=== PATIENT | male | born 1960 | race Caucasian/White ===

== ENCOUNTER 2018-03-01 11:28 | Inpatient (IN) | payer OTHER ==
[~2018-03-01] VITALS: Ht 175.3 cm; Wt 79.9 kg
--- NOTE | 2018-03-01 11:48 | PHYS DOC ---
Adult General Chief Complaint Chief Complaint: CHEST PAIN [facility] HPI Patient is a 57 year old male who presents with chest pain. Patient had onset of left side chest pain earlier this morning after waking. Pain has been constant since onset and is nonradiating. There are no aggravating or alleviating factors. He has not had shortness of breath. He has no recent illness, fever, cough. The patient does have a known history of hyperlipidemia and high blood pressure. He does endorse compliance with metoprolol, diltiazem, Cartia, and a statin. He states he did take his medications this morning although he is noted to be significantly hypertensive on arrival with systolic blood pressure over 200. Bili aspirin daily. He denies prior history of coronary artery disease but states he has been evaluated and admitted for chest pain previously. Review of Systems Review of Systems Constitutional: Denies fever Eyes: Denies change in visual acuity HENT: Denies nasal congestion Respiratory: Denies cough or shortness of breath Cardiovascular: No additional information not addressed in HPI GI: Denies abdominal pain : Denies dysuria Musculoskeletal: Denies back pain Integument: Denies rash Neurologic: Denies headache Endocrine: Denies polyuria All other systems were reviewed and found to be within normal limits, except as documented in this note. Current Medications Current Medications Current Medications Medications (Trade) Dose Ordered Sig/[facility] Start Time Stop Time Status Last Admin Dose Admin Aspirin (Children'S Aspirin) 324 mg 1X ONCE 03/01/18 12:00 03/01/18 12:21 DC 03/01/18 12:28 324 MG Nitroglycerin (Nitrostat) 0.4 mg PRN Q5MIN PRN 03/01/18 12:00 03/01/18 12:44 0.4 MG Allergies Allergies Allergies Coded Allergies Type Severity Reaction Last Updated Verified No Known Drug Allergies 03/01/18 No Physical Exam Physical Exam Constitutional: Well developed, well nourished, no acute distress, non-toxic appearance HENT: Normocephalic, atraumatic, bilateral external ears normal, oropharynx moist Eyes: PERRLA, EOMI, conjunctiva normal Neck: Normal range of motion, no tenderness Cardiovascular:Heart rate regular rhythm, no murmur Lungs & Thorax: Bilateral breath sounds clear to auscultation Abdomen: Bowel sounds normal, soft Skin: Warm, dry, no erythema, no rash Back: No tenderness Extremities: No edema Neurologic: Alert and oriented X 3 Psychologic: Affect normal Current Patient Data Vital Signs Vital Signs Date Time Temp Pulse Resp B/P (MAP) Pulse Ox O2 Delivery O2 Flow Rate FiO2 03/01/18 12:44 69 180/89 03/01/18 11:36 98.1 14 Room Air 98.1 Lab Values Laboratory Tests Test 03/01/18 11:50 White Blood Count 6.9 x10^3/uL (4.0-11.0) Red Blood Count 5.38 x10^6/uL (4.30-5.70) Hemoglobin 16.4 g/dL (13.0-17.5) Hematocrit 46.8 % (39.0-53.0) Mean Corpuscular Volume 87 fL (79-100) Mean Corpuscular Hemoglobin 31 pg (25-35) Mean Corpuscular Hemoglobin Concent 35 g/dL (31-37) Red Cell Distribution Width 14.6 % (11.5-14.5) H Platelet Count 237 x10^3/uL (140-400) Neutrophils (%) (Auto) 62 % (31-73) Lymphocytes (%) (Auto) 26 % (24-48) Monocytes (%) (Auto) 10 % (0-9) H Eosinophils (%) (Auto) 2 % (0-3) Basophils (%) (Auto) 1 % (0-3) Neutrophils # (Auto) 4.3 x10^3uL (1.8-7.7) Lymphocytes # (Auto) 1.8 x10^3/uL (1.0-4.8) Monocytes # (Auto) 0.7 x10^3/uL (0.0-1.1) Eosinophils # (Auto) 0.1 x10^3/uL (0.0-0.7) Basophils # (Auto) 0.1 x10^3/uL (0.0-0.2) Prothrombin Time 12.1 SEC (11.7-14.0) Prothrombin Time INR 0.9 (0.8-1.1) PTT 29 SEC (24-38) D-Dimer (Dejah) 0.33 ug/mlFEU (0.00-0.50) Sodium Level 136 mmol/L (136-145) Potassium Level 4.3 mmol/L (3.5-5.1) Chloride Level 102 mmol/L (98-107) Carbon Dioxide Level 25 mmol/L (21-32) Anion Gap 9 (6-14) Blood Urea Nitrogen 13 mg/dL (8-26) Creatinine 1.1 mg/dL (0.7-1.3) Estimated GFR (Cockcroft-Gault) 68.8 Glucose Level 147 mg/dL (70-99) H Calcium Level 8.8 mg/dL (8.5-10.1) Troponin I Quantitative < 0.017 ng/mL (0.000-0.055) IE-Oue-W-Type Natriuretic Peptide 757 pg/mL (0-124) H Laboratory Tests 03/01/18 11:50 Laboratory Tests 03/01/18 11:50 EKG EKG No STEMI. T wave inversion V4-V6 Interpretation Time: 11:40 Radiology/Procedures Radiology/Procedures no acute findings Course & Med Decision Making Course & Med Decision Making Pertinent Labs and Imaging studies reviewed. (See chart for details) 11:45: Patient is examined and evaluated for chest pain. His EKG reveals sinus rhythm with some T-wave inversion in leads V4 through V6. There is no ST elevation. Standard CP work-up. NTG for pain. ASA. 13:25: No acute findings on the workup today. Based on the patient's comorbidities, he has a heart score of 4. His EKG was nonacute. Plan today will be to admission for chest pain rule out and cardiology consultation. The patient is agreeable. He did have relief of chest pain in the ER following administration of nitroglycerin. His pain returned however when he ambulated to the restroom to void. I spoke to Dr. John who will primarily admit. Bridge orders and cardiology consult placed. Dragon Disclaimer Dragon Disclaimer This electronic medical record was generated, in whole or in part, using a voice recognition dictation system. LIN LOPEZ DO Mar 01, 2018 11:48
[2018-03-01] MEDS ORDERED: ASPIRIN CHEWABLE 81 MG TABLET. PO ONE (12:00)
--- NOTE | 2018-03-01 12:00 | EKG ---
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
[2018-03-01 12:14] LABS: BASO # 0.1 x10^3/uL (0.0-0.2); BASO % 1 % (0-3); EOS # 0.1 x10^3/uL (0.0-0.7); EOS % 2 % (0-3); HEMATOCRIT 46.8 % (39.0-53.0); HEMOGLOBIN 16.4 g/dL (13.0-17.5); LYMPH # 1.8 x10^3/uL (1.0-4.8); LYMPH % 26 % (24-48); MEAN CORPUSCULAR HEMOGLOBIN 31 pg (25-35); MEAN CORPUSCULAR HGB CONC 35 g/dL (31-37); MEAN CORPUSCULAR VOLUME 87 fL (79-100); MONO # 0.7 x10^3/uL (0.0-1.1); MONO % 10 % (0-9); NEUT # 4.3 x10^3uL (1.8-7.7); NEUT % 62 % (31-73); PLATELET COUNT 237 x10^3/uL (140-400); RED BLOOD COUNT 5.38 x10^6/uL (4.30-5.70); RED CELL DISTRIBUTION WIDTH 14.6 % (11.5-14.5); WHITE BLOOD COUNT 6.9 x10^3/uL (4.0-11.0)
[2018-03-01 12:23] LABS: PROTHROMBIN TIME PATIENT 12.1 SEC (11.7-14.0)
[2018-03-01 12:28] LABS: D-DIMER 0.33 ug/mlFEU (0.00-0.50)
[2018-03-01] MEDS: NITROGLYCERIN SUBLINGUAL 0.4 MG BOTTLE OF 25. SL PRN ×2 (12:28→12:44)
[2018-03-01 12:29] LABS: CALCIUM 8.8 mg/dL (8.5-10.1); CREATININE 1.1 mg/dL (0.7-1.3); GFR 68.8; POTASSIUM 4.3 mmol/L (3.5-5.1)
--- NOTE | 2018-03-01 13:15 | RAD ---
PORTABLE CHEST 1V Clinical indications: CHEST PAIN COMPARISON: 10/22/2009. Findings: No acute lung infiltrate or pleural effusion or pulmonary edema or lung mass or pneumothorax is seen. The heart size, pulmonary vasculature, mediastinum and both addison are unremarkable. Impression: No acute radiographic abnormality is seen. Electronically signed by: Manuel Pickering MD (03/01/2018 1:12 PM) [facility]
[2018-03-01] MEDS ORDERED: MORPHINE SULFATE 4 MG/ML VIAL. IV PRN (13:30)
[2018-03-01] MEDS ORDERED: NITROGLYCERIN SUBLINGUAL 0.4 MG BOTTLE OF 25. SL PRN (13:30)
[2018-03-01] MEDS ORDERED: ONDANSETRON PF 4 MG/2 ML VIAL. IV PRN ×2 (13:30→14:00)
[2018-03-01] MEDS ORDERED: DOCUSATE SODIUM 100 MG CAPSULE. PO PRN (14:00)
[2018-03-01] MEDS ORDERED: traMADol 50 MG TABLET PO PRN (14:00)
[2018-03-01] MEDS ORDERED: DEXTROSE 50% 25 GM / 50ML DISP.SYRIN. IV PRN (14:00)
[2018-03-01] MEDS ORDERED: MORPHINE SULFATE 2 MG/ML VIAL. IV PRN (14:00)
[2018-03-01] MEDS ORDERED: LABETALOL 20 MG/4 ML DISP.SYRIN. IVP PRN (14:00)
[2018-03-01] MEDS ORDERED: ACETAMINOPHEN 325 MG TABLET. PO PRN (14:00)
--- NOTE | 2018-03-01 14:01 | PDOC1 ---
History and Physical Date of Admission Date of Admission 03/01/18 Identification/Chief Complaint Chief Complaint chest pain Source Source: Chart review, Patient History of Present Illness History of Present Illness Patient is a 57 year old male who presents with chest pain for a few weekS. pT HAS HTN, dm2 on insulin, [place] intermittent left side chest pain for a few weeks. The pain feels pressure and sharp, usually happened when he walks, but he didnot has to stop walking and the pain goes away after a few minutes, no diaphoresis, sob or N/V with it. When the pain was severe, it could be 8/10, no tenderness, no acid reflux. Today, he started to feel chest pain about 8.30am when resting, constant, also found high BP at 200, and came to ER. compliant with his home meds. He does endorse compliance with metoprolol, diltiazem, Cartia, and a statin. He states he did take his medications this morning although he is noted to be significantly hypertensive on arrival with systolic blood pressure over 200. Bili aspirin daily. He denies prior history of coronary artery disease but states he has been evaluated and admitted for chest pain previously years ago. first trop neg. EKG SHOWED T wave inversion at v3-6. Past Medical History Cardiovascular: HTN Endocrine: Diabetes Past Surgical History Past Surgical History: No pertinent history Family History Family History: Heart Disease, Hypertension Social History Smoke: No ALCOHOL: heavy (6 packs beers every other day) Drugs: None Current Medications Current Medications Current Medications Medications (Trade) Dose Ordered Sig/Laura Start Time Stop Time Status Last Admin Dose Admin Aspirin (Children'S Aspirin) 324 mg 1X ONCE 03/01/18 12:00 03/01/18 12:21 DC 03/01/18 12:28 324 MG Morphine Sulfate (Morphine Sulfate) 4 mg PRN Q2HR PRN 03/01/18 13:30 03/02/18 13:29 Nitroglycerin (Nitrostat) 0.4 mg PRN Q5MIN PRN 03/01/18 13:30 03/02/18 13:29 Ondansetron HCl (Zofran) 4 mg PRN Q8HRS PRN 03/01/18 13:30 03/02/18 13:29 Allergies Allergies Allergies Coded Allergies Type Severity Reaction Last Updated Verified No Known Drug Allergies 03/01/18 No ROS Review of System CONSTITUTIONAL: No fever or chills EYES: No recent changes SKIN: No rash or itching CARDIOVASCULAR: No chest pain, syncope, palpitations, or edema RESPIRATORY: No SOB or cough GASTROINTESTINAL: No nausea, vomiting or abdominal pain NEUROLOGICAL: No headaches or weakness ENDOCRINE: No cold or heat intolerance GENITOURINARY: No urgency or frequency of urination MUSCULOSKELETAL: No back pain or joint pain LYMPHATICS: No enlarged lymph nodes PSYCHIATRIC: No anxiety or depression Physical Exam Physical Exam GEN.: No apparent distress. Alert and oriented. HEENT: Head is normocephalic, atraumatic NECK: Supple. LUNGS: Clear to auscultation. HEART: RRR, S1, S2 present. Peripheral pulses intact ABDOMEN: Soft, nontender. Positive bowel sounds. EXTREMITIES: Without any cyanosis. NEUROLOGIC: Normal speech, normal tone PSYCHIATRIC: Normal affect, normal mood. SKIN: No ulcerations Vitals Vitals Vital Signs Date Time Temp Pulse Resp B/P (MAP) Pulse Ox O2 Delivery O2 Flow Rate FiO2 03/01/18 12:44 69 180/89 03/01/18 11:36 98.1 14 Room Air 98.1 Labs Labs Laboratory Tests Test 03/01/18 11:50 White Blood Count 6.9 x10^3/uL (4.0-11.0) Red Blood Count 5.38 x10^6/uL (4.30-5.70) Hemoglobin 16.4 g/dL (13.0-17.5) Hematocrit 46.8 % (39.0-53.0) Mean Corpuscular Volume 87 fL (79-100) Mean Corpuscular Hemoglobin 31 pg (25-35) Mean Corpuscular Hemoglobin Concent 35 g/dL (31-37) Red Cell Distribution Width 14.6 % (11.5-14.5) Platelet Count 237 x10^3/uL (140-400) Neutrophils (%) (Auto) 62 % (31-73) Lymphocytes (%) (Auto) 26 % (24-48) Monocytes (%) (Auto) 10 % (0-9) Eosinophils (%) (Auto) 2 % (0-3) Basophils (%) (Auto) 1 % (0-3) Neutrophils # (Auto) 4.3 x10^3uL (1.8-7.7) Lymphocytes # (Auto) 1.8 x10^3/uL (1.0-4.8) Monocytes # (Auto) 0.7 x10^3/uL (0.0-1.1) Eosinophils # (Auto) 0.1 x10^3/uL (0.0-0.7) Basophils # (Auto) 0.1 x10^3/uL (0.0-0.2) Prothrombin Time 12.1 SEC (11.7-14.0) Prothromb Time International Ratio 0.9 (0.8-1.1) Activated Partial Thromboplast Time 29 SEC (24-38) D-Dimer (Dejah) 0.33 ug/mlFEU (0.00-0.50) Sodium Level 136 mmol/L (136-145) Potassium Level 4.3 mmol/L (3.5-5.1) Chloride Level 102 mmol/L (98-107) Carbon Dioxide Level 25 mmol/L (21-32) Anion Gap 9 (6-14) Blood Urea Nitrogen 13 mg/dL (8-26) Creatinine 1.1 mg/dL (0.7-1.3) Estimated GFR (Cockcroft-Gault) 68.8 Glucose Level 147 mg/dL (70-99) Calcium Level 8.8 mg/dL (8.5-10.1) Troponin I Quantitative < 0.017 ng/mL (0.000-0.055) TQ-Ypu-W-Type Natriuretic Peptide 757 pg/mL (0-124) Laboratory Tests Test 03/01/18 11:50 White Blood Count 6.9 x10^3/uL (4.0-11.0) Red Blood Count 5.38 x10^6/uL (4.30-5.70) Hemoglobin 16.4 g/dL (13.0-17.5) Hematocrit 46.8 % (39.0-53.0) Mean Corpuscular Volume 87 fL (79-100) Mean Corpuscular Hemoglobin 31 pg (25-35) Mean Corpuscular Hemoglobin Concent 35 g/dL (31-37) Red Cell Distribution Width 14.6 % (11.5-14.5) Platelet Count 237 x10^3/uL (140-400) Neutrophils (%) (Auto) 62 % (31-73) Lymphocytes (%) (Auto) 26 % (24-48) Monocytes (%) (Auto) 10 % (0-9) Eosinophils (%) (Auto) 2 % (0-3) Basophils (%) (Auto) 1 % (0-3) Neutrophils # (Auto) 4.3 x10^3uL (1.8-7.7) Lymphocytes # (Auto) 1.8 x10^3/uL (1.0-4.8) Monocytes # (Auto) 0.7 x10^3/uL (0.0-1.1) Eosinophils # (Auto) 0.1 x10^3/uL (0.0-0.7) Basophils # (Auto) 0.1 x10^3/uL (0.0-0.2) Prothrombin Time 12.1 SEC (11.7-14.0) Prothromb Time International Ratio 0.9 (0.8-1.1) Activated Partial Thromboplast Time 29 SEC (24-38) D-Dimer (Dejah) 0.33 ug/mlFEU (0.00-0.50) Sodium Level 136 mmol/L (136-145) Potassium Level 4.3 mmol/L (3.5-5.1) Chloride Level 102 mmol/L (98-107) Carbon Dioxide Level 25 mmol/L (21-32) Anion Gap 9 (6-14) Blood Urea Nitrogen 13 mg/dL (8-26) Creatinine 1.1 mg/dL (0.7-1.3) Estimated GFR (Cockcroft-Gault) 68.8 Glucose Level 147 mg/dL (70-99) Calcium Level 8.8 mg/dL (8.5-10.1) Troponin I Quantitative < 0.017 ng/mL (0.000-0.055) FO-Zsf-R-Type Natriuretic Peptide 757 pg/mL (0-124) VTE Prophylaxis Ordered VTE Prophylaxis Devices: Yes VTE Pharmacological Prophylaxi: Yes Assessment/Plan Assessment/Plan unstable angina HTN URGENCY dm2 on insulin HLD alcoholism with 6pcks of beer every other day plan: card consult check TSH, lipid panel, echo, hba1c cycle CE lovenox 80mg sq bid for now, may need cath tmr? need verify home meds add asa FA, VITB1 talked to at bedside. DESMOND PEREZ MD Mar 01, 2018 14:01
[2018-03-01] MEDS ORDERED: ANTI-COAG MONITOR BY PHARMACY. MC PRN (14:15)
[2018-03-01] MEDS: THIAMINE 100 MG TABLET. PO SCH (15:47)
[2018-03-01] MEDS: FOLIC ACID 1 MG TABLET. PO SCH (15:47)
[2018-03-01 15:49] VITALS: BP 155/85
[2018-03-01] MEDS: INSULIN LISPRO 300 UNITS/3 ML INSULN.PEN. SQ SCH (17:08)
[2018-03-01 19:00] VITALS: BP 140/72
[2018-03-01 19:51] LABS: BARBITURATES NEG (NEG); BENZODIAZEPINES NEG (NEG); CANNABINOIDS NEG (NEG); COCAINE NEG (NEG); METHADONE NEG (NEG); OPIATES NEG (NEG); PHENCYCLIDINE NEG (NEG)
[2018-03-01 19:52] LABS: AMPHETAMINE/METHAMPHETAMINE NEG (NEG)
[2018-03-01] MEDS ORDERED: INSULIN GLARGINE 300 UNITS/3 ML INSULN.PEN. SQ ONE (21:00)
[2018-03-01] MEDS ORDERED: INSULIN LISPRO 300 UNITS/3 ML INSULN.PEN. SQ ONE (21:00)
[2018-03-01 23:00] VITALS: BP 163/73
[2018-03-01 23:06] LABS: HEMOGLOBIN A1C 8.4 % (4.8-5.6)
[2018-03-02 03:00] VITALS: BP 135/70
[2018-03-02 05:46] LABS: BASO % 1 % (0-3); EOS # 0.1 x10^3/uL (0.0-0.7); EOS % 2 % (0-3); HEMATOCRIT 45.6 % (39.0-53.0); HEMOGLOBIN 15.6 g/dL (13.0-17.5); LYMPH # 1.7 x10^3/uL (1.0-4.8); LYMPH % 31 % (24-48); MEAN CORPUSCULAR HEMOGLOBIN 30 pg (25-35); MEAN CORPUSCULAR HGB CONC 34 g/dL (31-37); MEAN CORPUSCULAR VOLUME 87 fL (79-100); MONO # 0.5 x10^3/uL (0.0-1.1); MONO % 10 % (0-9); NEUT # 3.2 x10^3uL (1.8-7.7); NEUT % 57 % (31-73); PLATELET COUNT 221 x10^3/uL (140-400); RED BLOOD COUNT 5.22 x10^6/uL (4.30-5.70); RED CELL DISTRIBUTION WIDTH 14.6 % (11.5-14.5); WHITE BLOOD COUNT 5.6 x10^3/uL (4.0-11.0)
[2018-03-02 06:22] LABS: CALCIUM 8.6 mg/dL (8.5-10.1); CREATININE 1.1 mg/dL (0.7-1.3); GFR 68.8; POTASSIUM 3.7 mmol/L (3.5-5.1)
[2018-03-02 06:26] LABS: CHOLESTEROL/HDL RATIO 3.8
[2018-03-02 06:58] VITALS: BP 145/78
[2018-03-02] MEDS: INSULIN LISPRO 300 UNITS/3 ML INSULN.PEN. SQ SCH ×2 (08:00→13:07)
[2018-03-02] MEDS ORDERED: ASPIRIN 325 MG TABLET PO SCH (08:00)
[2018-03-02] MEDS: THIAMINE 100 MG TABLET. PO SCH (09:00)
[2018-03-02] MEDS: FOLIC ACID 1 MG TABLET. PO SCH (09:00)
[2018-03-02] MEDS ORDERED: VALS1TAB22 PO (09:36)
[2018-03-02] MEDS ORDERED: DILT240C2 PO (09:36)
[2018-03-02] MEDS ORDERED: METO-269 PO (09:36)
[2018-03-02] MEDS ORDERED: PRAV40TA2 PO (09:36)
[2018-03-02] MEDS ORDERED: GABA-586 PO (09:36)
--- NOTE | 2018-03-02 09:44 | PDOC2 ---
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 Started again yesterday at 6 or 7 or 8 while he watching TV. BP was 231/131 POA with troponin levels not consistent with AMI. EKG without acute changes but with T wave inversions in V4-V6. Reason for Visit: CP PAST MEDICAL HISTORY Cardiovascular: HTN, Hyperlipidemia, Other (murmur) Pulmonary: No pertinent hx CENTRAL NERVOUS SYSTEM: Other (none) GI: No pertinent hx Heme/Onc: No pertinent hx Hepatobiliary: No pertinent hx Psych: No pertinent hx Musculoskeletal: No pain Rheumatologic: No pertinent hx Infectious disease: No pertinent hx ENT: No pertinent hx Renal/: No pertinent hx Endocrine: Diabetes (type II, uncontrolled) Dermatology: No pertinent hx PAST SURGICAL HISTORY Past Surgical History: No pertinent history FAMILY HISTORY Family History: Heart Disease (father and brother diagnosed in their 70s) SOCIAL HISTORY Smoke: Quit ALCOHOL: heavy (at least one beer per day; 6 pack each day on the weekends) Drugs: None CURRENT MEDICATIONS CURRENT MEDICATIONS Current Medications Medications (Trade) Dose Ordered Sig/Laura Route PRN Reason Start Time Stop Time Status Last Admin Dose Admin Aspirin (Children'S Aspirin) 324 mg 1X ONCE PO 03/01/18 12:00 03/01/18 12:21 DC 03/01/18 12:28 Nitroglycerin (Nitrostat) 0.4 mg PRN Q5MIN PRN SL CHEST PAIN 03/01/18 12:00 03/01/18 12:44 Insulin Human Lispro (HumaLOG) 0-9 UNITS TIDWMEALS SQ 03/01/18 17:00 03/01/18 17:08 Enoxaparin Sodium (Lovenox 80mg Syringe) 80 mg Q12HR SQ 03/01/18 14:30 03/01/18 20:36 Folic Acid (Folic Acid) 1 mg DAILY PO 03/01/18 14:30 03/01/18 15:47 Thiamine Mononitrate (Vitamin B-1) 100 mg DAILY PO 03/01/18 14:30 03/01/18 15:47 Insulin Glargine (Lantus) 20 units 1X ONCE SQ 03/01/18 21:00 03/01/18 21:01 DC 03/01/18 21:09 Insulin Human Lispro (HumaLOG) 6 units 1X ONCE SQ 03/01/18 21:00 03/01/18 21:01 DC 03/01/18 21:10 ALLERGIES ALLERGIES: Coded Allergies: No Known Drug Allergies (Unverified , 03/01/18) ROS General: No: Chills, Night Sweats, Fatigue, Malaise, Appetite, Other PSYCHOLOGICAL ROS: No: Anxiety, Behavioral Disorder, Concentration difficultie , Decreased libido, Depression, Disorientation, Hallucinations, Hostility, Irritablity, Memory difficulties, Mood Swings, Obsessive thoughts, Physical abuse, Sexual abuse, Sleep disturbances, Suicidal ideation, Other Eyes: No Blurry vision, No Decreased vision, No Double vision, No Dry eyes, No Excessive tearing, No Eye Pain, No Itchy Eyes, No Loss of vision, No Photophobia , No Scotomata, No Uses contacts, No Uses glasses, No Other HEENT: No: Heacaches, Visual Changes, Hearing change, Nasal congestion, Nasal discharge, Oral lesions, Sinus pain, Sore Throat, Epistaxis, Sneezing, Snoring, Tinnitus, Vertigo, Vocal changes, Other ALLERGY AND IMMUNOLOGY: No: Hives, Insect Bite Sensitivity, Itchy/Watery Eyes, Nasal Congestion, Post Nasal Drip, Seasonal Allergies, Other Hematological and Lymphatic: No: Bleeding Problems, Blood Clots, Blood Transfusions, Brusing, Night Sweats, Pallor, Swollen Lymph Nodes, Other ENDOCRINE: No: Breast Changes, Galactorrhea, Hair Pattern Changes, Hot Flashes , Malaise/lethargy, Mood Swings, Palpitations, Polydipsia/polyuria, Skin Changes , Temperature Intolerance, Unexpected Weight Changes, Other Respiratory: No: Cough, Hemoptysis, Orthopnea, Pleuritic Pain, Shortness of breath, SOB with excertion, Sputum Changes, Stridor, Tachypnea, Wheezing, Other Cardiovascular: yes Chest Pain; No Palpitations, No Orthopnea, No Paroxysmal Noc. Dyspnea, No Edema, No Lt Headedness, No Other Gastrointestinal: No Nausea, No Vomiting, No Abdominal Pain, No Diarrhea, No Constipation, No Melena, No Hematochezia, No Other Genitourinary: YES ; No Dysuria, No Frequency, No Incontinence, No Hematuria, No Retention, No Discharge, No Urgency, No Pain, No Flank Pain, No Other Musculoskeletal: No Gait Disturbance, No Joint Pain, No Joint Stiffness, No Joint Swelling, No Muscle Pain, No Muscular Weakness, No Pain In:, No Swelling In:, No Other Neurological: No Behavorial Changes, No Bowel/Bladder ControlChng, No Confusion , No Dizziness, No Gait Disturbance, No Headaches, No Impaired Coord/balance, No Memory Loss, No Numbness/Tingling, No Seizures, No Speech Problems, No Tremors, No Visual Changes, No Weakness, No Other Skin: No Dry Skin, No Eczema, No Hair Changes, No Lumps, No Mole Changes, No Mottling, No Nail Changes, No Pruritus, No Rash, No Skin Lesion Changes, No Other, No Acne PHYSICAL EXAM General: Alert, Oriented X3, Cooperative, No acute distress HEENT: Atraumatic Lungs: Clear to auscultation, Normal air movement Heart: Normal S1, Normal S2, Other (3-4/6 TERESE LSB) Abdomen: Normal bowel sounds, Soft Extremities: No edema, Normal pulses Skin: No rashes Neuro: Normal speech Psych/Mental Status: Mental status NL MUSCULOSKELETAL: No deformity, Osteoarthritic changes both hands VITALS VITALS Vital Signs Date Time Temp Pulse Resp B/P (MAP) Pulse Ox O2 Delivery O2 Flow Rate FiO2 03/02/18 06:58 98.1 61 16 145/78 (100) 99 Room Air 98.1 LABS Lab: Laboratory Tests Test 03/01/18 11:43 03/01/18 11:50 03/01/18 16:01 03/01/18 16:24 Hemoglobin A1c 8.4 % (4.8-5.6) Thyroid Stimulating Hormone (TSH) 1.322 uIU/mL (0.358-3.74) White Blood Count 6.9 x10^3/uL (4.0-11.0) Red Blood Count 5.38 x10^6/uL (4.30-5.70) Hemoglobin 16.4 g/dL (13.0-17.5) Hematocrit 46.8 % (39.0-53.0) Mean Corpuscular Volume 87 fL (79-100) Mean Corpuscular Hemoglobin 31 pg (25-35) Mean Corpuscular Hemoglobin Concent 35 g/dL (31-37) Red Cell Distribution Width 14.6 % (11.5-14.5) Platelet Count 237 x10^3/uL (140-400) Neutrophils (%) (Auto) 62 % (31-73) Lymphocytes (%) (Auto) 26 % (24-48) Monocytes (%) (Auto) 10 % (0-9) Eosinophils (%) (Auto) 2 % (0-3) Basophils (%) (Auto) 1 % (0-3) Neutrophils # (Auto) 4.3 x10^3uL (1.8-7.7) Lymphocytes # (Auto) 1.8 x10^3/uL (1.0-4.8) Monocytes # (Auto) 0.7 x10^3/uL (0.0-1.1) Eosinophils # (Auto) 0.1 x10^3/uL (0.0-0.7) Basophils # (Auto) 0.1 x10^3/uL (0.0-0.2) Prothrombin Time 12.1 SEC (11.7-14.0) Prothromb Time International Ratio 0.9 (0.8-1.1) Activated Partial Thromboplast Time 29 SEC (24-38) D-Dimer (Dejah) 0.33 ug/mlFEU (0.00-0.50) Sodium Level 136 mmol/L (136-145) Potassium Level 4.3 mmol/L (3.5-5.1) Chloride Level 102 mmol/L (98-107) Carbon Dioxide Level 25 mmol/L (21-32) Anion Gap 9 (6-14) Blood Urea Nitrogen 13 mg/dL (8-26) Creatinine 1.1 mg/dL (0.7-1.3) Estimated GFR (Cockcroft-Gault) 68.8 Glucose Level 147 mg/dL (70-99) Calcium Level 8.8 mg/dL (8.5-10.1) Troponin I Quantitative < 0.017 ng/mL (0.000-0.055) < 0.017 ng/mL (0.000-0.055) YE-Rkt-M-Type Natriuretic Peptide 757 pg/mL (0-124) Glucose (Fingerstick) 176 mg/dL (70-99) Test 03/01/18 17:15 03/01/18 19:20 03/01/18 20:21 03/01/18 22:46 Urine Opiates Screen Neg (NEG) Urine Methadone Screen Neg (NEG) Urine Barbiturates Neg (NEG) Urine Phencyclidine Screen Neg (NEG) Urine Amphetamine/Methamphetamine Neg (NEG) Urine Benzodiazepines Screen Neg (NEG) Urine Cocaine Screen Neg (NEG) Urine Cannabinoids Screen Neg (NEG) Urine Ethyl Alcohol Neg (NEG) Troponin I Quantitative < 0.017 ng/mL (0.000-0.055) Glucose (Fingerstick) 324 mg/dL (70-99) 275 mg/dL (70-99) Test 03/02/18 04:10 White Blood Count 5.6 x10^3/uL (4.0-11.0) Red Blood Count 5.22 x10^6/uL (4.30-5.70) Hemoglobin 15.6 g/dL (13.0-17.5) Hematocrit 45.6 % (39.0-53.0) Mean Corpuscular Volume 87 fL (79-100) Mean Corpuscular Hemoglobin 30 pg (25-35) Mean Corpuscular Hemoglobin Concent 34 g/dL (31-37) Red Cell Distribution Width 14.6 % (11.5-14.5) Platelet Count 221 x10^3/uL (140-400) Neutrophils (%) (Auto) 57 % (31-73) Lymphocytes (%) (Auto) 31 % (24-48) Monocytes (%) (Auto) 10 % (0-9) Eosinophils (%) (Auto) 2 % (0-3) Basophils (%) (Auto) 1 % (0-3) Neutrophils # (Auto) 3.2 x10^3uL (1.8-7.7) Lymphocytes # (Auto) 1.7 x10^3/uL (1.0-4.8) Monocytes # (Auto) 0.5 x10^3/uL (0.0-1.1) Eosinophils # (Auto) 0.1 x10^3/uL (0.0-0.7) Basophils # (Auto) 0.0 x10^3/uL (0.0-0.2) Sodium Level 137 mmol/L (136-145) Potassium Level 3.7 mmol/L (3.5-5.1) Chloride Level 103 mmol/L (98-107) Carbon Dioxide Level 25 mmol/L (21-32) Anion Gap 9 (6-14) Blood Urea Nitrogen 16 mg/dL (8-26) Creatinine 1.1 mg/dL (0.7-1.3) Estimated GFR (Cockcroft-Gault) 68.8 Glucose Level 167 mg/dL (70-99) Calcium Level 8.6 mg/dL (8.5-10.1) Triglycerides Level 205 mg/dL (0-150) Cholesterol Level 192 mg/dL (0-200) LDL Cholesterol, Calculated 101 mg/dL (0-100) VLDL Cholesterol, Calculated 41 mg/dL (0-40) Non-HDL Cholesterol Calculated 142 mg/dL (0-129) HDL Cholesterol 50 mg/dL (40-60) Cholesterol/HDL Ratio 3.8 IMAGES IMAGES CXR without acute process EKG EKG no acute changes; T wave inversions V4-V6 ASSESSMENT/PLAN ASSESSMENT/PLAN 1. chest pain --EKG and troponin levels not consistent with AMI --somewhat vague about symptoms; ? related to significant ETOH use --risk factors include HTN, uncontrolled, DM, HLD - untreated, male sex, age > 55 and family history ----MPI advised; pharmacological as patient with undiagnosed murmur --continue aspirin therapy 2. murmur --TTE to evaluate 3. HTN --needs medications --will start ACEI as also diabetic; if MPI positive will need beta-blockers as well 4. HLD --associated with uncontrolled DM --add statin therapy 5. DM, II, uncontrolled --defer to primary service 6. substance abuse --admits to heavy ETOH use ODILON BILLY MD 03/02/182123: CARDIAC CONSULT ASSESSMENT/PLAN ASSESSMENT/PLAN Pt. seen and examined. AGree with above WELDING TEACHER note. reassuring exam. Normal echo. Essentially normal MPI. Plan for outpt f/u of symptoms in 4-6 weeks. Continue risk factor modification. DENIZ MURRAY [employer] Mar 02, 2018 09:44 ODILON BILLY MD Mar 02, 2018 21:24
[2018-03-02] MEDS ORDERED: INSU100C SQ (09:45)
[2018-03-02] MEDS ORDERED: INSU100I13 SQ (09:45)
[2018-03-02] MEDS ORDERED: REGADENOSON 0.4 MG/5 ML DISP.SYRIN. IV ONE (10:30)
[2018-03-02 11:00] VITALS: BP 158/76
--- NOTE | 2018-03-02 11:45 | PDOC ---
PROGRESS NOTES Chief Complaint Chief Complaint unstable angina HTN URGENCY dm2 on insulin HLD alcoholism with 6pcks of beer every other day plan: card consulted, MPI? check TSH, lipid panel, echo, hba1c cycle CE neg lovenox 80mg sq bid for now cont home meds, slightly decrease insulin to lantus 25u qhs, aspart 5u tid, ssi add asa FA, VITB1 talked to at bedside. History of Present Illness History of Present Illness intermittent chest pain overnights, each time a few min ROS: no fever, chills, sob Vitals Vitals Vital Signs Date Time Temp Pulse Resp B/P (MAP) Pulse Ox O2 Delivery O2 Flow Rate FiO2 03/02/18 11:00 97.9 57 18 158/76 (103) 98 Room Air 97.9 Physical Exam General: Alert, Oriented X3, Cooperative, No acute distress Heart: Regular rate, Normal S1, Normal S2, Other (3-4/6 TERESE LSB) Lungs: Clear Abdomen: Normal bowel sounds, Soft Extremities: No edema, Normal pulses Skin: No rashes Labs LABS Laboratory Tests Test 03/01/18 11:50 03/01/18 16:01 03/01/18 16:24 03/01/18 17:15 White Blood Count 6.9 x10^3/uL (4.0-11.0) Red Blood Count 5.38 x10^6/uL (4.30-5.70) Hemoglobin 16.4 g/dL (13.0-17.5) Hematocrit 46.8 % (39.0-53.0) Mean Corpuscular Volume 87 fL (79-100) Mean Corpuscular Hemoglobin 31 pg (25-35) Mean Corpuscular Hemoglobin Concent 35 g/dL (31-37) Red Cell Distribution Width 14.6 % (11.5-14.5) Platelet Count 237 x10^3/uL (140-400) Neutrophils (%) (Auto) 62 % (31-73) Lymphocytes (%) (Auto) 26 % (24-48) Monocytes (%) (Auto) 10 % (0-9) Eosinophils (%) (Auto) 2 % (0-3) Basophils (%) (Auto) 1 % (0-3) Neutrophils # (Auto) 4.3 x10^3uL (1.8-7.7) Lymphocytes # (Auto) 1.8 x10^3/uL (1.0-4.8) Monocytes # (Auto) 0.7 x10^3/uL (0.0-1.1) Eosinophils # (Auto) 0.1 x10^3/uL (0.0-0.7) Basophils # (Auto) 0.1 x10^3/uL (0.0-0.2) Prothrombin Time 12.1 SEC (11.7-14.0) Prothromb Time International Ratio 0.9 (0.8-1.1) Activated Partial Thromboplast Time 29 SEC (24-38) D-Dimer (Dejah) 0.33 ug/mlFEU (0.00-0.50) Sodium Level 136 mmol/L (136-145) Potassium Level 4.3 mmol/L (3.5-5.1) Chloride Level 102 mmol/L (98-107) Carbon Dioxide Level 25 mmol/L (21-32) Anion Gap 9 (6-14) Blood Urea Nitrogen 13 mg/dL (8-26) Creatinine 1.1 mg/dL (0.7-1.3) Estimated GFR (Cockcroft-Gault) 68.8 Glucose Level 147 mg/dL (70-99) Calcium Level 8.8 mg/dL (8.5-10.1) Troponin I Quantitative < 0.017 ng/mL (0.000-0.055) < 0.017 ng/mL (0.000-0.055) VC-Lod-I-Type Natriuretic Peptide 757 pg/mL (0-124) Glucose (Fingerstick) 176 mg/dL (70-99) Urine Opiates Screen Neg (NEG) Urine Methadone Screen Neg (NEG) Urine Barbiturates Neg (NEG) Urine Phencyclidine Screen Neg (NEG) Urine Amphetamine/Methamphetamine Neg (NEG) Urine Benzodiazepines Screen Neg (NEG) Urine Cocaine Screen Neg (NEG) Urine Cannabinoids Screen Neg (NEG) Urine Ethyl Alcohol Neg (NEG) Test 03/01/18 19:20 03/01/18 20:21 03/01/18 22:46 03/02/18 04:10 Troponin I Quantitative < 0.017 ng/mL (0.000-0.055) Glucose (Fingerstick) 324 mg/dL (70-99) 275 mg/dL (70-99) White Blood Count 5.6 x10^3/uL (4.0-11.0) Red Blood Count 5.22 x10^6/uL (4.30-5.70) Hemoglobin 15.6 g/dL (13.0-17.5) Hematocrit 45.6 % (39.0-53.0) Mean Corpuscular Volume 87 fL (79-100) Mean Corpuscular Hemoglobin 30 pg (25-35) Mean Corpuscular Hemoglobin Concent 34 g/dL (31-37) Red Cell Distribution Width 14.6 % (11.5-14.5) Platelet Count 221 x10^3/uL (140-400) Neutrophils (%) (Auto) 57 % (31-73) Lymphocytes (%) (Auto) 31 % (24-48) Monocytes (%) (Auto) 10 % (0-9) Eosinophils (%) (Auto) 2 % (0-3) Basophils (%) (Auto) 1 % (0-3) Neutrophils # (Auto) 3.2 x10^3uL (1.8-7.7) Lymphocytes # (Auto) 1.7 x10^3/uL (1.0-4.8) Monocytes # (Auto) 0.5 x10^3/uL (0.0-1.1) Eosinophils # (Auto) 0.1 x10^3/uL (0.0-0.7) Basophils # (Auto) 0.0 x10^3/uL (0.0-0.2) Sodium Level 137 mmol/L (136-145) Potassium Level 3.7 mmol/L (3.5-5.1) Chloride Level 103 mmol/L (98-107) Carbon Dioxide Level 25 mmol/L (21-32) Anion Gap 9 (6-14) Blood Urea Nitrogen 16 mg/dL (8-26) Creatinine 1.1 mg/dL (0.7-1.3) Estimated GFR (Cockcroft-Gault) 68.8 Glucose Level 167 mg/dL (70-99) Calcium Level 8.6 mg/dL (8.5-10.1) Triglycerides Level 205 mg/dL (0-150) Cholesterol Level 192 mg/dL (0-200) LDL Cholesterol, Calculated 101 mg/dL (0-100) VLDL Cholesterol, Calculated 41 mg/dL (0-40) Non-HDL Cholesterol Calculated 142 mg/dL (0-129) HDL Cholesterol 50 mg/dL (40-60) Cholesterol/HDL Ratio 3.8 Comment Review of Relevant I have reviewed the following items everardo (where applicable) has been applied. Labs Laboratory Tests Test 03/01/18 11:43 03/01/18 11:50 03/01/18 16:01 03/01/18 16:24 Hemoglobin A1c 8.4 % (4.8-5.6) Thyroid Stimulating Hormone (TSH) 1.322 uIU/mL (0.358-3.74) White Blood Count 6.9 x10^3/uL (4.0-11.0) Red Blood Count 5.38 x10^6/uL (4.30-5.70) Hemoglobin 16.4 g/dL (13.0-17.5) Hematocrit 46.8 % (39.0-53.0) Mean Corpuscular Volume 87 fL (79-100) Mean Corpuscular Hemoglobin 31 pg (25-35) Mean Corpuscular Hemoglobin Concent 35 g/dL (31-37) Red Cell Distribution Width 14.6 % (11.5-14.5) Platelet Count 237 x10^3/uL (140-400) Neutrophils (%) (Auto) 62 % (31-73) Lymphocytes (%) (Auto) 26 % (24-48) Monocytes (%) (Auto) 10 % (0-9) Eosinophils (%) (Auto) 2 % (0-3) Basophils (%) (Auto) 1 % (0-3) Neutrophils # (Auto) 4.3 x10^3uL (1.8-7.7) Lymphocytes # (Auto) 1.8 x10^3/uL (1.0-4.8) Monocytes # (Auto) 0.7 x10^3/uL (0.0-1.1) Eosinophils # (Auto) 0.1 x10^3/uL (0.0-0.7) Basophils # (Auto) 0.1 x10^3/uL (0.0-0.2) Prothrombin Time 12.1 SEC (11.7-14.0) Prothromb Time International Ratio 0.9 (0.8-1.1) Activated Partial Thromboplast Time 29 SEC (24-38) D-Dimer (Dejah) 0.33 ug/mlFEU (0.00-0.50) Sodium Level 136 mmol/L (136-145) Potassium Level 4.3 mmol/L (3.5-5.1) Chloride Level 102 mmol/L (98-107) Carbon Dioxide Level 25 mmol/L (21-32) Anion Gap 9 (6-14) Blood Urea Nitrogen 13 mg/dL (8-26) Creatinine 1.1 mg/dL (0.7-1.3) Estimated GFR (Cockcroft-Gault) 68.8 Glucose Level 147 mg/dL (70-99) Calcium Level 8.8 mg/dL (8.5-10.1) Troponin I Quantitative < 0.017 ng/mL (0.000-0.055) < 0.017 ng/mL (0.000-0.055) MG-Fcb-N-Type Natriuretic Peptide 757 pg/mL (0-124) Glucose (Fingerstick) 176 mg/dL (70-99) Test 03/01/18 17:15 03/01/18 19:20 03/01/18 20:21 03/01/18 22:46 Urine Opiates Screen Neg (NEG) Urine Methadone Screen Neg (NEG) Urine Barbiturates Neg (NEG) Urine Phencyclidine Screen Neg (NEG) Urine Amphetamine/Methamphetamine Neg (NEG) Urine Benzodiazepines Screen Neg (NEG) Urine Cocaine Screen Neg (NEG) Urine Cannabinoids Screen Neg (NEG) Urine Ethyl Alcohol Neg (NEG) Troponin I Quantitative < 0.017 ng/mL (0.000-0.055) Glucose (Fingerstick) 324 mg/dL (70-99) 275 mg/dL (70-99) Test 03/02/18 04:10 White Blood Count 5.6 x10^3/uL (4.0-11.0) Red Blood Count 5.22 x10^6/uL (4.30-5.70) Hemoglobin 15.6 g/dL (13.0-17.5) Hematocrit 45.6 % (39.0-53.0) Mean Corpuscular Volume 87 fL (79-100) Mean Corpuscular Hemoglobin 30 pg (25-35) Mean Corpuscular Hemoglobin Concent 34 g/dL (31-37) Red Cell Distribution Width 14.6 % (11.5-14.5) Platelet Count 221 x10^3/uL (140-400) Neutrophils (%) (Auto) 57 % (31-73) Lymphocytes (%) (Auto) 31 % (24-48) Monocytes (%) (Auto) 10 % (0-9) Eosinophils (%) (Auto) 2 % (0-3) Basophils (%) (Auto) 1 % (0-3) Neutrophils # (Auto) 3.2 x10^3uL (1.8-7.7) Lymphocytes # (Auto) 1.7 x10^3/uL (1.0-4.8) Monocytes # (Auto) 0.5 x10^3/uL (0.0-1.1) Eosinophils # (Auto) 0.1 x10^3/uL (0.0-0.7) Basophils # (Auto) 0.0 x10^3/uL (0.0-0.2) Sodium Level 137 mmol/L (136-145) Potassium Level 3.7 mmol/L (3.5-5.1) Chloride Level 103 mmol/L (98-107) Carbon Dioxide Level 25 mmol/L (21-32) Anion Gap 9 (6-14) Blood Urea Nitrogen 16 mg/dL (8-26) Creatinine 1.1 mg/dL (0.7-1.3) Estimated GFR (Cockcroft-Gault) 68.8 Glucose Level 167 mg/dL (70-99) Calcium Level 8.6 mg/dL (8.5-10.1) Triglycerides Level 205 mg/dL (0-150) Cholesterol Level 192 mg/dL (0-200) LDL Cholesterol, Calculated 101 mg/dL (0-100) VLDL Cholesterol, Calculated 41 mg/dL (0-40) Non-HDL Cholesterol Calculated 142 mg/dL (0-129) HDL Cholesterol 50 mg/dL (40-60) Cholesterol/HDL Ratio 3.8 Laboratory Tests Test 03/01/18 11:50 03/01/18 16:01 03/01/18 16:24 03/01/18 17:15 White Blood Count 6.9 x10^3/uL (4.0-11.0) Red Blood Count 5.38 x10^6/uL (4.30-5.70) Hemoglobin 16.4 g/dL (13.0-17.5) Hematocrit 46.8 % (39.0-53.0) Mean Corpuscular Volume 87 fL (79-100) Mean Corpuscular Hemoglobin 31 pg (25-35) Mean Corpuscular Hemoglobin Concent 35 g/dL (31-37) Red Cell Distribution Width 14.6 % (11.5-14.5) Platelet Count 237 x10^3/uL (140-400) Neutrophils (%) (Auto) 62 % (31-73) Lymphocytes (%) (Auto) 26 % (24-48) Monocytes (%) (Auto) 10 % (0-9) Eosinophils (%) (Auto) 2 % (0-3) Basophils (%) (Auto) 1 % (0-3) Neutrophils # (Auto) 4.3 x10^3uL (1.8-7.7) Lymphocytes # (Auto) 1.8 x10^3/uL (1.0-4.8) Monocytes # (Auto) 0.7 x10^3/uL (0.0-1.1) Eosinophils # (Auto) 0.1 x10^3/uL (0.0-0.7) Basophils # (Auto) 0.1 x10^3/uL (0.0-0.2) Prothrombin Time 12.1 SEC (11.7-14.0) Prothromb Time International Ratio 0.9 (0.8-1.1) Activated Partial Thromboplast Time 29 SEC (24-38) D-Dimer (Dejah) 0.33 ug/mlFEU (0.00-0.50) Sodium Level 136 mmol/L (136-145) Potassium Level 4.3 mmol/L (3.5-5.1) Chloride Level 102 mmol/L (98-107) Carbon Dioxide Level 25 mmol/L (21-32) Anion Gap 9 (6-14) Blood Urea Nitrogen 13 mg/dL (8-26) Creatinine 1.1 mg/dL (0.7-1.3) Estimated GFR (Cockcroft-Gault) 68.8 Glucose Level 147 mg/dL (70-99) Calcium Level 8.8 mg/dL (8.5-10.1) Troponin I Quantitative < 0.017 ng/mL (0.000-0.055) < 0.017 ng/mL (0.000-0.055) KF-Pnu-H-Type Natriuretic Peptide 757 pg/mL (0-124) Glucose (Fingerstick) 176 mg/dL (70-99) Urine Opiates Screen Neg (NEG) Urine Methadone Screen Neg (NEG) Urine Barbiturates Neg (NEG) Urine Phencyclidine Screen Neg (NEG) Urine Amphetamine/Methamphetamine Neg (NEG) Urine Benzodiazepines Screen Neg (NEG) Urine Cocaine Screen Neg (NEG) Urine Cannabinoids Screen Neg (NEG) Urine Ethyl Alcohol Neg (NEG) Test 03/01/18 19:20 03/01/18 20:21 03/01/18 22:46 03/02/18 04:10 Troponin I Quantitative < 0.017 ng/mL (0.000-0.055) Glucose (Fingerstick) 324 mg/dL (70-99) 275 mg/dL (70-99) White Blood Count 5.6 x10^3/uL (4.0-11.0) Red Blood Count 5.22 x10^6/uL (4.30-5.70) Hemoglobin 15.6 g/dL (13.0-17.5) Hematocrit 45.6 % (39.0-53.0) Mean Corpuscular Volume 87 fL (79-100) Mean Corpuscular Hemoglobin 30 pg (25-35) Mean Corpuscular Hemoglobin Concent 34 g/dL (31-37) Red Cell Distribution Width 14.6 % (11.5-14.5) Platelet Count 221 x10^3/uL (140-400) Neutrophils (%) (Auto) 57 % (31-73) Lymphocytes (%) (Auto) 31 % (24-48) Monocytes (%) (Auto) 10 % (0-9) Eosinophils (%) (Auto) 2 % (0-3) Basophils (%) (Auto) 1 % (0-3) Neutrophils # (Auto) 3.2 x10^3uL (1.8-7.7) Lymphocytes # (Auto) 1.7 x10^3/uL (1.0-4.8) Monocytes # (Auto) 0.5 x10^3/uL (0.0-1.1) Eosinophils # (Auto) 0.1 x10^3/uL (0.0-0.7) Basophils # (Auto) 0.0 x10^3/uL (0.0-0.2) Sodium Level 137 mmol/L (136-145) Potassium Level 3.7 mmol/L (3.5-5.1) Chloride Level 103 mmol/L (98-107) Carbon Dioxide Level 25 mmol/L (21-32) Anion Gap 9 (6-14) Blood Urea Nitrogen 16 mg/dL (8-26) Creatinine 1.1 mg/dL (0.7-1.3) Estimated GFR (Cockcroft-Gault) 68.8 Glucose Level 167 mg/dL (70-99) Calcium Level 8.6 mg/dL (8.5-10.1) Triglycerides Level 205 mg/dL (0-150) Cholesterol Level 192 mg/dL (0-200) LDL Cholesterol, Calculated 101 mg/dL (0-100) VLDL Cholesterol, Calculated 41 mg/dL (0-40) Non-HDL Cholesterol Calculated 142 mg/dL (0-129) HDL Cholesterol 50 mg/dL (40-60) Cholesterol/HDL Ratio 3.8 Medications Current Medications Aspirin (Children'S Aspirin) 324 mg 1X ONCE PO Last administered on 03/01/18at 12:28; Start 03/01/18 at 12:00; Stop 03/01/18 at 12:21; Status DC Nitroglycerin (Nitrostat) 0.4 mg PRN Q5MIN PRN SL CHEST PAIN Last administered on 03/01/18at 12:44; Start 03/01/18 at 12:00 Ondansetron HCl (Zofran) 4 mg PRN Q8HRS PRN IV NAUSEA/VOMITING; Start 03/01/18 at 13:30; Stop 03/02/18 at 13:29; Status Cancel Morphine Sulfate (Morphine Sulfate) 4 mg PRN Q2HR PRN IV PAIN; Start 03/01/18 at 13:30; Stop 03/01/18 at 14:08; Status DC Nitroglycerin (Nitrostat) 0.4 mg PRN Q5MIN PRN SL CHEST PAIN; Start 03/01/18 at 13:30; Stop 03/01/18 at 14:07; Status DC Acetaminophen (Tylenol) 650 mg PRN Q6HRS PRN PO HEADACHE/TEMP; Start 03/01/18 at 14:00 Ondansetron HCl (Zofran) 4 mg PRN Q6HRS PRN IV NAUSEA/VOMITING 1ST CHOICE; Start 03/01/18 at 14:00 Morphine Sulfate (Morphine Sulfate) 2 mg PRN Q2HR PRN IV MODERATE TO SEVERE PAIN; Start 03/01/18 at 14:00 Tramadol HCl (Ultram) 50 mg PRN Q6HRS PRN PO MILD TO MODERATE PAIN; Start at 14:00 Docusate Sodium (Colace) 100 mg PRN DAILY PRN PO CONSTIPATION; Start 03/01/18 at 14:00 Labetalol HCl (Normodyne Iv Push) 20 mg PRN Q2HR PRN IVP HYPERTENSION, SEE COMMENTS; Start 03/01/18 at 14:00 Enoxaparin Sodium (Lovenox 80mg Syringe) 80 mg Q12HR SQ ; Start 03/01/18 at 21:00 ; Stop 03/01/18 at 21:00; Status DC Aspirin (Zaki Aspirin) 325 mg DAILYWBKFT PO ; Start 03/02/18 at 08:00 Insulin Human Lispro (HumaLOG) 0-9 UNITS TIDWMEALS SQ Last administered on at 17:08; Start 03/01/18 at 17:00 Dextrose (Dextrose 50%-Water Syringe) 12.5 gm PRN Q15MIN PRN IV SEE COMMENTS; Start 03/01/18 at 14:00 Enoxaparin Sodium (Lovenox 80mg Syringe) 80 mg Q12HR SQ Last administered on 03/01/18at 20:36; Start 03/01/18 at 14:30 Folic Acid (Folic Acid) 1 mg DAILY PO Last administered on 03/01/18at 15:47; Start 03/01/18 at 14:30 Thiamine Mononitrate (Vitamin B-1) 100 mg DAILY PO Last administered on at 15:47; Start 03/01/18 at 14:30 Info (Anti-Coagulation Monitoring By Pharmacy) 1 each PRN DAILY PRN MC SEE COMMENTS; Start 03/01/18 at 14:15 Insulin Glargine (Lantus) 20 units 1X ONCE SQ Last administered on 03/01/18at 21 :09; Start 03/01/18 at 21:00; Stop 03/01/18 at 21:01; Status DC Insulin Human Lispro (HumaLOG) 6 units 1X ONCE SQ Last administered on at 21:10; Start 03/01/18 at 21:00; Stop 03/01/18 at 21:01; Status DC Regadenoson (Lexiscan) 0.4 mg 1X ONCE IV Last administered on 03/02/18at 11:34; Start 03/02/18 at 10:30; Stop 03/02/18 at 10:31; Status DC Atorvastatin Calcium (Lipitor) 40 mg QHS PO ; Start 03/02/18 at 21:00 Lisinopril (Prinivil) 20 mg DAILY PO ; Start 03/02/18 at 12:30 Active Scripts Active Reported Humalog (Insulin Lispro) 100 Unit/1 Ml Cartridge 100 Unit SQ Lantus Solostar (Insulin Glargine,Hum.rec.anlog) 100 Unit/1 Ml Insuln.pen 30 Unit SQ QHS Toprol Xl (Metoprolol Succinate) 50 Mg Tab.er.24h 1 Tab PO DAILY Neurontin (Gabapentin) 300 Mg Capsule 300 Mg PO TID Diovan Hct 320-25 Mg Tablet (Valsartan/Hydrochlorothiazide) 1 Each Tablet 1 Each PO DAILY Pravastatin Sodium 40 Mg Tablet 1 Tab PO QHS Cardizem Cd (Diltiazem Hcl) 240 Mg Cap.er.24h 240 Mg PO DAILY Vitals/I & O Vital Sign - Last 24 Hours 03/01/18 03/01/18 03/01/18 03/01/18 12:28 12:30 12:44 13:30 Pulse 67 66 69 65 Resp 18 20 B/P (MAP) 202/101 165/82 (109) 180/89 147/92 (110) Pulse Ox 94 97 O2 Delivery Room Air Room Air 03/01/18 03/01/18 03/01/18 03/01/18 14:30 15:49 17:20 19:00 Temp 98.3 97.8 98.3 97.8 Pulse 56 62 59 Resp 18 18 18 B/P (MAP) 128/83 (98) 155/85 (108) 140/72 (94) Pulse Ox 98 97 97 O2 Delivery Room Air Room Air Room Air Room Air 9/09/1303/01/18 03/02/18 03/02/18 20:00 23:00 03:00 06:58 Temp 98.4 98.4 98.1 98.4 98.4 98.1 Pulse 58 61 61 Resp 16 16 16 B/P (MAP) 163/73 (103) 135/70 (91) 145/78 (100) Pulse Ox 97 97 99 O2 Delivery Room Air Room Air Room Air Room Air 03/02/18 03/02/18 08:00 11:00 Temp 97.9 97.9 Pulse 57 Resp 18 B/P (MAP) 158/76 (103) Pulse Ox 98 O2 Delivery Room Air Room Air Intake and Output 03/01/18 03/01/18 03/02/18 15:00 23:00 07:00 Intake Total 1100 ml Output Total 0 ml Balance 1100 ml 0 ml DESMOND PEREZ MD Mar 02, 2018 11:44
--- NOTE | 2018-03-02 12:15 | CARD ---
MR#: [id number] Date of Study: 03/02/2018 Ordering Physician: DENIZ MURRAY, Referring Physician: DESMOND PEREZ Tech: Treasure Kline RDCS APPROVED REPORT EXAM: Two-dimensional and M-mode echocardiogram with Doppler and color Doppler. Other Information Quality : Good INDICATION Angina 2D DIMENSIONS RVDd2.2 (2.9-3.5cm)Left Atrium(2D)3.2 (1.6-4.0cm) IVSd1.3 (0.7-1.1cm)Aortic Root(2D)3.1 (2.0-3.7cm) LVDd4.2 (3.9-5.9cm)LVOT Diameter2.3 (1.8-2.4cm) PWd1.7 (0.7-1.1cm)LVDs2.3 (2.5-4.0cm) FS (%) 30.0 %SV58.8 ml LVEF(%)60.0 (>50%) Aortic Valve AoV Peak Сергей.141.0cm/sAoV VTI34.1cm AO Peak GR.7.9mmHgLVOT Peak Сергей.112.2cm/s LVOT VTI 22.61cmAO Mean GR.4mmHg TESSA (VMAX)3.00xz5UTH (VTI)2.77cm2 Mitral Valve MV E Tjbyrsfc87.9cm/sMV DECEL [id number] MV A Tzeepdre004.5cm/sMV KOB01zj E/A Ratio0.6MVA (PHT)3.16cm2 TDI E/Medial E'12.4 Tricuspid Valve TR P. Ngybfmeg593vp/sRAP [id number] TR Peak Gr.76ifZdGQDP05hlEy Pulmonary Vein S1 Hjxpdbdn877.0cm/sD2 Yyzcbxnc31.4cm/s LEFT VENTRICLE The left ventricle is normal size. There is mild to moderate concentric left ventricular hypertrophy. The left ventricular systolic function is normal and the ejection fraction is within normal range. T he Ejection Fraction is 60-65%. There is normal LV segmental wall motion. Transmitral Doppler flow pa ttern is Grade I-abnormal relaxation pattern. RIGHT VENTRICLE The right ventricle is normal size. The right ventricular systolic function is normal. ATRIA The left atrium size is normal. The right atrium size is normal. The interatrial septum is intact wit h no evidence for an atrial septal defect or patent foramen ovale as noted on 2-D or Doppler imaging. AORTIC VALVE The aortic valve is sclerotic but opens well. Doppler and Color Flow revealed no significant aortic r egurgitation. There is no significant aortic valvular stenosis. MITRAL VALVE The mitral valve is calcified but opens well. There is no evidence of mitral valve prolapse. There is no mitral valve stenosis. Doppler and Color-flow revealed trace mitral regurgitation. TRICUSPID VALVE The tricuspid valve is normal in structure and function. Doppler and Color Flow revealed trace tricus pid regurgitation. The PA pressure was estimated at 20 mmHg. There is no tricuspid valve stenosis. PULMONIC VALVE The pulmonic valve is not well visualized. Doppler and Color Flow revealed trace to mild pulmonic tony vular regurgitation. There is no pulmonic valvular stenosis. GREAT VESSELS The aortic root is normal in size. The ascending aorta is normal in size. The IVC is normal in size a nd collapses >50% with inspiration. PERICARDIAL EFFUSION There is no evidence of significant pericardial effusion. Critical Notification Critical Value: No <Conclusion> The left ventricular systolic function is normal and the ejection fraction is within normal range. Th e Ejection Fraction is 60-65%. There is mild to moderate concentric left ventricular hypertrophy. There is normal LV segmental wall motion. No significant valvular disease. Signed by : Jose Gupta, Electronically Approved : 03/02/2018 12:14:32
[2018-03-02] MEDS ORDERED: LISINOPRIL 20 MG TABLET PO SCH (12:30)
[2018-03-02] MEDS ORDERED: METOPROLOL SUCC 24HR ER 50 MG TAB.ER.24H. PO SCH (13:00)
[2018-03-02] MEDS ORDERED: INSULIN LISPRO 300 UNITS/3 ML INSULN.PEN. SQ ONE (13:15)
[2018-03-02] MEDS ORDERED: GABAPENTIN 300 MG CAPSULE. PO SCH (14:00)
--- NOTE | 2018-03-02 14:07 | RAD ---
MR#: [id number] Date of Study: 03/02/2018 Ordering Physician: DENIZ MURRAY, Referring Physician: JHONATHAN TILLMAN Tech: Deanna Stone RT (R) (N) APPROVED REPORT Test Type: Pharmacological Stress Nurse/Tech: Kierra Jacobsen RN Test Indications: CP Cardiac History: High cholesterol, Diabetes Medications: See Electronic Medical Record Medical History: See Electronic Medical Record Resting ECG: SR Resting Heart Rate: 53 bpm Resting Blood Pressure: 170/73mmHg Pretest Chest Pain: No chest pain Nurse/Tech Notes S1S2, LS clear. Consent: The procedure was explained to the patient in lay terms. Informed consent was witnessed. Eliel eout was entered into [employer]. History and Stress Test performed by Kierra Jacobsen RN Pharm. Details Pharmacologic stress testing was performed using 0.4mg per 5ml of regadenoson given intravenously ove r 7-10 seconds. Stress Symptoms Dyspnea, Flushing POST EXERCISE Reason for Termination: Infusion complete Max HR: 95 bpm Max Blood Pressure: 151/70mmHg Chest Pain: No. Arrhythmia: No. ST Change: No. INTERPRETATION Stress EKG Conclusion: Baseline EKG showed sinus rhythm. No ischemic changes at peak stress. No arr hythmias. Imaging Protocol IMAGE PROTOCOL: Rest Tc-99m/stress Tc-99m 1 day Rest: Stress: Viability: Radiopharm.Tc99m GyvlwwljkFf20q Sestamibi Uaak66zPq 33.1mCi Duration 15min. 10min. Img Date 03/02/2018 03/02/2018 Inj-Img Ejsw06xll. 60min. Rest Admin Site:IV - Left HandAdministrator:JUAN R Walton, ARRT (R)(N) Stress Admin Site: IV - Left HandAdministrator: JUAN R Walton, ARRT (R)(N) STRESS DATA End Diast. Vol.75.0mlAv. Heart Rate80.0bpm End Syst. Vol.14.0mlCO Index BSA0.0L/min Myocardial Frhz512.0gEject. Mnenrzdc36.0% Stress Rates Pk. Fill Rate4.56EDV/secLVtime Pk. Fill 228.40msec Pk. Empty Rate5.48ESV/secLVtime Pk. Qpojb550.26msec /3 Pk. Fill0.85EDV/sec Stress Scores Regional WT0.00Summed WT2.00 Regional WM0.00Summed WM1.00 LV Perfusion Scintigraphic images showed very small reversible defect involving the apical wall consistent with is chemia. Wall Motion Normal left ventricle systolic function with ejection fraction calculated at 81%. LV Perf. Quant 17 Seg. SSS0.00 17 Seg. SRS0.00 17 Seg. SDS0.00 Stress Defect Extent (% LAD)0.00Rest Defect Extent (% LAD)0.00Rev. Defect Extent (% LAD)0.00 Stress Defect Extent (% LCX) 0.00Rest Defect Extent (% LCX)0.00Rev. Defect Extent (% LCX)0.00 Stress Defect Extent (% RCA)0.00Rest Defect Extent (% RCA)0.00Rev. Defect Extent (% RCA)0.00 Stress Defect Extent (% IAN)0.00Rest Defect Extent (% IAN)0.00Rev. Defect Extent (% IAN)0.00 Conclusion 1. Regadenoson cardioisotope stress test showed very small amount of apical wall ischemia. 2. Normal left ventricular systolic function with ejection fraction calculated at 81%. 3. Low risk for cardiac events. Signed by : Ed Sanabria, Electronically Approved : 03/02/2018 14:06:34
[2018-03-02 14:50] VITALS: BP 155/85
[2018-03-02] MEDS ORDERED: ASPI325T8 PO (16:09)
[2018-03-02] MEDS ORDERED: INSULIN LISPRO 300 UNITS/3 ML INSULN.PEN. SQ SCH (16:30)
--- NOTE | 2018-03-02 16:38 | PDOC3 ---
Discharge Summary [facility] Date of Admission: Mar 01, 2018 Discharge Date: Mar 02, 2018 Admitting Diagnosis chest pain with possible unstable angina HTN URGENCY dm2 on insulin HLD alcoholism with 6pcks of beer every other day CONSULTS card Brief Hospital Course Patient is a 57 year old male who presents with chest pain for a few weekS. pT HAS HTN, dm2 on insulin, [place] intermittent left side chest pain for a few weeks. The pain feels pressure and sharp, usually happened when he walks, but he didnot has to stop walking and the pain goes away after a few minutes, no diaphoresis, sob or N/V with it. When the pain was severe, it could be 8/10, no tenderness, no acid reflux. Today, he started to feel chest pain about 8.30am when resting, constant, also found high BP at 200, and came to ER. compliant with his home meds. He does endorse compliance with metoprolol, diltiazem, Cartia, and a statin. He states he did take his medications this morning although he is noted to be significantly hypertensive on arrival with systolic blood pressure over 200. Bili aspirin daily. He denies prior history of coronary artery disease but states he has been evaluated and admitted for chest pain previously years ago. first trop neg. EKG SHOWED T wave inversion at v3-6. CE neg. echo and MPI not significant. pt is pain free. dc home. dc time 35min. Disposition home CONDITION AT DISCHARGE: Improved Scheduled Diltiazem Hcl (Cardizem Cd), 240 MG PO DAILY, (Reported) Gabapentin (Neurontin), 300 MG PO TID, (Reported) Insulin Glargine,Hum.rec.anlog (Lantus Solostar), 30 UNIT SQ QHS, (Reported) Metoprolol Succinate (Toprol Xl), 1 TAB PO DAILY, (Reported) Pravastatin Sodium (Pravastatin Sodium), 1 TAB PO QHS, (Reported) Valsartan/Hydrochlorothiazide (Diovan Hct 320-25 Mg Tablet), 1 EACH PO DAILY, ( Reported) Miscellaneous Medications Aspirin (Aspirin), 325 MG PO, (Reported) Insulin Lispro (Humalog), 100 UNIT SQ, (Reported) DESMOND PEREZ MD Mar 02, 2018 16:38
[2018-03-02] MEDS ORDERED: ATORVASTATIN CALCIUM 40 MG TABLET. PO SCH (21:00)
[2018-03-02] MEDS ORDERED: INSULIN GLARGINE 300 UNITS/3 ML INSULN.PEN. SQ SCH (21:00)
[2018-03-02] MEDS ORDERED: NON FORMULARY ITEM (Pravastatin Sodium 1 TAB) PO SCH (21:00)
[2018-03-03] MEDS ORDERED: HYDROCHLOROTHIAZIDE PO SCH (09:00)
[2018-03-03] MEDS ORDERED: VALSARTAN PO SCH (09:00)
== END 2018-03-02 17:02 | disposition home or self-care (01) | DRG 305 ==
LOC: ER 11:28 → 5 SOUTH 13:20
PROVIDERS: ADMIT Internal Medicine; ATTEND Internal Medicine
DX: I16.0 Hypertensive urgency (principal); I20.0 Unstable angina; E11.65 Type 2 diabetes mellitus with hyperglycemia; E78.5 Hyperlipidemia, unspecified; F10.20 Alcohol dependence, uncomplicated; I10 Essential (primary) hypertension; Z79.4 Long term (current) use of insulin; Z79.82 Long term (current) use of aspirin; Z79.899 Other long term (current) drug therapy; Z82.49 Family history of ischemic heart disease and other diseases of the circulatory system
CPT/HCPCS: 36415; 71045; 78452; 80048; 80061; 80307; 82962; 83036; 83880; 84443; 84484; 85025; 85379; 85610; 85730; 93005; 93017; 93306; 96374; 96375; 96376; A9500; J1650; J1815; J2785; 99285-25; G0479

== ENCOUNTER → 2019-10-25 | Outpatient (CLI) | payer BC ==
[~2019-10-25] MED LIST: ASPI325T8 PO; DILT240C2 PO; GABA300C18 PO; INSU100C SQ; INSU100I13 SQ; METO-269 PO; PRAV40TA2 PO; VALS1TAB22 PO
--- NOTE | 2019-10-25 11:15 | CARD ---
MR#: [id number] Date of Study: 10/25/2019 Ordering Physician: ODILON BILLY, Referring Physician: ODILON BILLY, Tech: Treasure Kline [facility] APPROVED REPORT EXAM: Two-dimensional and M-mode echocardiogram with Doppler and color Doppler. Other Information Quality : Good INDICATION Hypertension/HCVD 2D DIMENSIONS RVDd2.3 (2.9-3.5cm)Left Atrium(2D)3.7 (1.6-4.0cm) IVSd1.2 (0.7-1.1cm)Aortic Root(2D)2.7 (2.0-3.7cm) LVDd4.6 (3.9-5.9cm)LVOT Diameter2.2 (1.8-2.4cm) PWd1.2 (0.7-1.1cm)LVDs2.6 (2.5-4.0cm) FS (%) 30.0 %SV74.0 ml LVEF(%)60.0 (>50%) Aortic Valve AoV Peak Сергей.137.2cm/sAoV VTI31.1cm AO Peak GR.7.5mmHgLVOT Peak Сергей.138.3cm/s AO Mean GR.4mmHgAVA (VMAX)3.75cm2 TESSA (VTI)3.70cm2 Mitral Valve MV E Juhlbxjr777.5cm/sMV DECEL [id number] MV A Xvtqpkce79.2cm/sE/A Ratio1.6 Tricuspid Valve TR P. Kckafcqm312fj/sRAP [id number] TR Peak Gr.33jiDfDYEZ24erDa Pulmonary Vein S1 Duzqqrpo416.3cm/sD2 Lsnsdupu38.8cm/s LEFT VENTRICLE The left ventricle is normal size. There is mild concentric left ventricular hypertrophy. The left ve ntricular systolic function is normal and the ejection fraction is within normal range. The Ejection Fraction is 55-60%. There is normal LV segmental wall motion. RIGHT VENTRICLE The right ventricle is normal size. The right ventricular systolic function is normal. ATRIA The left atrium size is normal. The right atrium size is normal. The interatrial septum is intact wit h no evidence for an atrial septal defect or patent foramen ovale as noted on 2-D or Doppler imaging. AORTIC VALVE The aortic valve is calcified but opens well. Doppler and Color Flow revealed no significant aortic r egurgitation. There is no significant aortic valvular stenosis. MITRAL VALVE The mitral valve is calcified but opens well. Mitral annular calcification is mild. There is no evide nce of mitral valve prolapse. There is no mitral valve stenosis. Doppler and Color-flow revealed trac e mitral regurgitation. TRICUSPID VALVE The tricuspid valve is normal in structure and function. Doppler and Color Flow revealed trace tricus pid regurgitation. The PA pressure was estimated at 46 mmHg. There is no tricuspid valve stenosis. PULMONIC VALVE The pulmonic valve is not well visualized. Doppler and Color Flow revealed mild pulmonic valvular reg urgitation. There is no pulmonic valvular stenosis. GREAT VESSELS The aortic root is normal in size. The ascending aorta is normal in size. The IVC is normal in size a nd collapses >50% with inspiration. PERICARDIAL EFFUSION There is no evidence of significant pericardial effusion. Critical Notification Critical Value: No <Conclusion> The left ventricle is normal size. The left ventricular systolic function is normal and the ejection fraction is within normal range. The Ejection Fraction is 55-60%. There is mild concentric left ventricular hypertrophy. Doppler and Color Flow revealed no significant aortic regurgitation. There is no significant aortic valvular stenosis. Doppler and Color-flow revealed trace mitral regurgitation. Doppler and Color Flow revealed trace tricuspid regurgitation. The PA pressure was estimated at 46 mmHg. Signed by : Ricardo Quispe MD Electronically Approved : 10/25/2019 11:14:55
--- NOTE | 2019-10-25 13:03 | RAD ---
Clinical indications: Asymmetric arm blood pressures Technique: Duplex sonography of the peripheral arterial system of both upper extremities including larson scale and color flow and spectral waveform analysis was performed.Biphasic waveforms are seen bilaterally. No occlusive disease is seen.No significant flow-limiting stenosis is seen. Left side: Subclavian artery 185 cm/sec; axillary artery 145 cm/sec; brachial artery 161 cm/sec; ulnar artery 138 cm/sec; radial artery 140 cm/sec. Right side: Subclavian artery 93 cm/sec; axillary artery 91 cm/sec; brachial artery 86 cm/sec; ulnar artery 82 cm/sec; radial artery 74 cm/sec. IMPRESSION: No significant peripheral arterial disease of either upper extremity is seen by duplex sonography. Electronically signed by: Manuel Pickering MD (10/25/2019 1:00 PM) [id number]
== END | disposition home or self-care (01) ==
LOC: ECHO 08:48
PROVIDERS: ATTEND Internal Medicine Cardiovascular Disease
DX: I08.8 Other rheumatic multiple valve diseases (principal); I11.9 Hypertensive heart disease without heart failure; I73.9 Peripheral vascular disease, unspecified
CPT/HCPCS: 93306; 93930

== ENCOUNTER → 2020-01-26 | Outpatient (CLI) | payer OTHER ==
[2020-01-26 09:33] LABS: BASO % 1 % (0-3); EOS # 0.2 x10^3/uL (0.0-0.7); EOS % 3 % (0-3); HEMATOCRIT 44.8 % (39.0-53.0); HEMOGLOBIN 15.2 g/dL (13.0-17.5); LYMPH # 1.7 x10^3/uL (1.0-4.8); LYMPH % 27 % (24-48); MEAN CORPUSCULAR HEMOGLOBIN 29 pg (25-35); MEAN CORPUSCULAR HGB CONC 34 g/dL (31-37); MEAN CORPUSCULAR VOLUME 87 fL (79-100); MONO # 0.6 x10^3/uL (0.0-1.1); MONO % 10 % (0-9); NEUT # 3.8 x10^3/uL (1.8-7.7); NEUT % 60 % (31-73); PLATELET COUNT 236 x10^3/uL (140-400); RED BLOOD COUNT 5.16 x10^6/uL (4.30-5.70); RED CELL DISTRIBUTION WIDTH 15.5 % (11.5-14.5); WHITE BLOOD COUNT 6.3 x10^3/uL (4.0-11.0)
[2020-01-26 09:45] LABS: ALBUMIN 3.3 g/dL (3.4-5.0); ALBUMIN/GLOBULIN RATIO 0.9 (1.0-1.7); CALCIUM 8.6 mg/dL (8.5-10.1); CREATININE 1.3 mg/dL (0.7-1.3); GFR 56.3; POTASSIUM 4.6 mmol/L (3.5-5.1); TOTAL BILIRUBIN 0.4 mg/dL (0.2-1.0); TOTAL PROTEIN 6.9 g/dL (6.4-8.2)
[2020-01-26 09:46] LABS: CHOLESTEROL/HDL RATIO 2.6
== END | disposition home or self-care (01) ==
LOC: LAB 08:32
PROVIDERS: ATTEND Internal Medicine Cardiovascular Disease
DX: I10 Essential (primary) hypertension (principal)
CPT/HCPCS: 36415; 80053; 80061; 83721; 85025